=== PATIENT | female | born 1960 | race Caucasian/White ===

== ENCOUNTER 2020-03-07 08:06 | Outpatient (CLI) | payer OTHER, SELFPAY ==
--- NOTE | ~2020-03-07 | MM_ITS ---
EXAMINATION: MM screening cl BI w [place] HISTORY: Screening TECHNIQUE: Craniocaudal and mediolateral oblique 3-D tomosynthesis images were obtained and synthetic 2-D images were generated. CAD analysis was submitted and interpreted. COMPARISON: 08/26/2017 BREAST PARENCHYMAL COMPOSITION: There are scattered areas of fibroglandular density. FINDINGS: There is no evidence of suspicious mass, calcification, or architectural distortion to sugg est malignancy in either breast. There has been no suspicious interval change. IMPRESSION: 1. No mammographic evidence of malignancy. 2. Recommend routine screening mammography in one year. BI-RADS Category 1: Negative Reviewed, dictated and finalized at location A. 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
== END 2020-03-07 08:07 | disposition home or self-care (01) ==
LOC: ANHIMG 08:09
PROVIDERS: PCP Physician Assistant; Visit Provider Family Medicine
DX: Z12.31 Encounter for screening mammogram for malignant neoplasm of breast (principal)
CPT/HCPCS: 77063; 77067